=== PATIENT | female | born 1985 ===

== ENCOUNTER 2022-08-30 06:16 | Day surgery (SDC) | payer OTHER | END 2022-08-30 11:25 | disposition home or self-care (01) | LOC: AMB-ENDOS 06:16 | PROVIDERS: ATTEND Surgery | DX: K29.50 Unspecified chronic gastritis without bleeding (principal); B96.81 Helicobacter pylori [H. pylori] as the cause of diseases classified elsewhere; K44.9 Diaphragmatic hernia without obstruction or gangrene; E66.09 Other obesity due to excess calories; Z88.6 Allergy status to analgesic agent; Z20.822 Contact with and (suspected) exposure to COVID-19 ==